=== PATIENT | female | born 1980 | race Hispanic/Latino ===

== ENCOUNTER 2017-04-12 17:04 | Emergency (ER) | payer BC ==
[~2017-04-12] VITALS: Ht 172.7 cm; Wt 85.3 kg
== END 2017-04-12 22:27 | disposition home or self-care (01) ==
LOC: ER 17:05
DX: R10.84 Generalized abdominal pain (principal); K59.00 Constipation, unspecified
CPT/HCPCS: 93005; 99282

== ENCOUNTER → 2024-03-23 | Day surgery (SDC) | payer BC ==
[2024-03-20 14:23] LABS: CALCIUM 9.5 mg/dL (8.4-10.2); CREATININE, SERUM 0.78 mg/dL (0.57-1.11)
[~2024-03-23] MED LIST: ACETAMINOPHEN 1000 MG/100 ML 100 ML IV ONE; D3-5000125 MCG; DEXAMETHASONE SOD PHOS INJ 4 MG/ML SDV ONE; FENTANYL CITRATE/PF 100MCG/2 ML INJ ONE; K2 PLUS D3 TAB1 EACH; LIDOCAINE HCL 2% LOCAL INJ 5 ML SDV VIAL INJ ONE; MAG GLYCINATE100 MG; METOCLOPRAMIDE HCL 10 MG/2ML VIAL ONE; MIDAZOLAM HCL 2 MG/2 ML VIAL ONE; MULTI-VITAMIN1 EACH PO; ONDANSETRON HCL INJ 2MG/ML 2ML 2 MG/ML VIAL ONE; PROPOFOL IV EMULSION 10 MG/ML 20 ML VIAL ONE; SEVOFLURANE INHAL SOLN 250 ML PEN BTL ONE
[2024-03-23] MEDS: CLINDAMYCIN PHOS 900MG/ 50ML 50 ML IV ONE (06:03)
[2024-03-23] MEDS: LACTATED RINGER'S 1,000 ML ONE (06:03)
[2024-03-23 07:41] VITALS: TEMP 98.2
[2024-03-23 08:40] VITALS: BP 111/74; PULSE 65; RESP 16; O2SAT 98
== END | disposition home or self-care (01) ==
LOC: OR 05:21
PROVIDERS: ATTEND Podiatrist Foot & Ankle Surgery
DX: G57.52 Tarsal tunnel syndrome, left lower limb (principal); I83.92 Asymptomatic varicose veins of left lower extremity; Z88.0 Allergy status to penicillin; Z88.2 Allergy status to sulfonamides
CPT/HCPCS: 28035; 36415; 80048; 81025; J0131; J1100; J2003; J2250; J2405; J2704; J2765; J3010; J7121